=== PATIENT | male | born 1950 | race Caucasian/White ===

== ENCOUNTER 2022-11-14 11:29 | Day surgery (SDC) | payer MEDICARE, BC ==
[2022-11-14] MEDS: Ofloxacin 0.3% Ophth Soln 5 ML Bottle EYELF SCH ×2 (12:08→12:34)
[2022-11-14] MEDS: Brimonidine 0.2% Ophth Soln 5 ML Bottle EYELF SCH ×4 (12:11→13:55)
[2022-11-14] MEDS: Phenylephrine 2.5% Ophth Soln 2 ML Bot EYELF SCH ×5 (12:14→13:31)
[2022-11-14] MEDS: Tropicamide 1% Ophth Soln 15 ML Bottle EYELF SCH ×4 (12:17→12:41)
[2022-11-14] MEDS ORDERED: Ondansetron 4 MG/2 ML SDV IVPUSH PRN (12:25)
[2022-11-14] MEDS: Tetracaine HCl/PF 0.5% 4 ML Bottle EYEBOTH SCH ×5 (13:13→13:44)
[2022-11-14] MEDS: Cefuroxime 10 MG/ML SYRINGE EYELF SCH ×2 (13:16→13:54)
[2022-11-14] MEDS: Lidocaine 1% PF 2 ML SDV INJECT SCH ×2 (13:16→13:43)
[2022-11-14] MEDS: Pilocarpine 4% Ophth Soln 15 ML Bot EYELF SCH ×2 (13:17→13:55)
[2022-11-14] MEDS: Polymyxin B/Trimethoprim 10 ML Bottle EYELF SCH ×2 (13:17→13:55)
== END 2022-11-14 14:04 | disposition home or self-care (01) ==
LOC: JD.SDS 11:29
PROVIDERS: ATTEND Ophthalmology
DX: E11.36 Type 2 diabetes mellitus with diabetic cataract (principal); H25.813 Combined forms of age-related cataract, bilateral; H43.813 Vitreous degeneration, bilateral; H16.103 Unspecified superficial keratitis, bilateral; H16.223 Keratoconjunctivitis sicca, not specified as Sjogren's, bilateral; H02.831 Dermatochalasis of right upper eyelid; H02.834 Dermatochalasis of left upper eyelid; I11.0 Hypertensive heart disease with heart failure; I50.30 Unspecified diastolic (congestive) heart failure; M06.9 Rheumatoid arthritis, unspecified; Z87.891 Personal history of nicotine dependence; Z79.82 Long term (current) use of aspirin; Z79.899 Other long term (current) drug therapy
CPT/HCPCS: 66984; A9270; J0697; J3490

== ENCOUNTER 2022-12-19 12:58 | Day surgery (SDC) | payer MEDICARE, BC ==
[~2022-12-19 12:58] MED LIST: Cefuroxime 10 MG/ML SYRINGE EYERT SCH; Lidocaine 1% PF 2 ML SDV INJECT SCH; Pilocarpine 4% Ophth Soln 15 ML Bot EYERT SCH
[2022-12-19] MEDS ORDERED: Ondansetron 4 MG/2 ML SDV IVPUSH PRN (13:16)
[2022-12-19] MEDS: Ofloxacin 0.3% Ophth Soln 5 ML Bottle EYERT SCH ×3 (13:22→15:06)
[2022-12-19] MEDS: Brimonidine 0.2% Ophth Soln 5 ML Bottle EYERT SCH ×3 (13:29→15:06)
[2022-12-19] MEDS: Phenylephrine 2.5% Opth Drops 10 mL EYERT SCH ×6 (13:37→14:47)
[2022-12-19] MEDS: Tropicamide 1% Ophth Soln 15 ML Bottle EYERT SCH ×4 (13:42→14:16)
[2022-12-19] MEDS: Tetracaine HCl/PF 0.5% 4 ML Bottle EYEBOTH SCH ×5 (14:21→14:55)
== END 2022-12-19 15:16 | disposition home or self-care (01) ==
LOC: JD.SDS 12:58
PROVIDERS: ATTEND Ophthalmology
DX: E11.36 Type 2 diabetes mellitus with diabetic cataract (principal); H25.811 Combined forms of age-related cataract, right eye; M06.9 Rheumatoid arthritis, unspecified; I10 Essential (primary) hypertension; Z98.890 Other specified postprocedural states; Z79.899 Other long term (current) drug therapy; Z88.2 Allergy status to sulfonamides; Z79.82 Long term (current) use of aspirin
CPT/HCPCS: 66984; A9270; J0697; J3490; V2632

== ENCOUNTER 2024-05-17 11:49 | Emergency (ER) | payer MEDICARE, BC ==
[2024-05-17 13:59] LABS: HEMATOCRIT 14.7 % (42.0-52.0); IMMATURE GRAN ABSOLUTE AUTO 0.02 K/mm3 (0.00-0.05); IMMATURE GRAN PERCENT AUTO 1.2 % (0.0-0.4); LYMPHOCYTES ABSOLUTE AUTO 0.4 K/mm3 (1.0-4.8); LYMPHOCYTES PERCENT AUTO 24.3 % (24.0-44.0); MEAN CORPUSCULAR HEMOGLOBIN 28.7 pg (28.0-32.0); MEAN CORPUSCULAR VOLUME 89.6 fl (83.0-99.0); MEAN PLATELET VOLUME 9.4 fl (9.4-12.4); MONOCYTES PERCENT AUTO 1.2 % (0.0-8.0); NEUTROPHILS ABSOLUTE AUTO 1.2 K/mm3 (1.8-7.7); NEUTROPHILS PERCENT AUTO 73.3 % (41.0-71.0); PLATELET COUNT,PLT 29 K/mm3 (150-400); RED BLOOD CELL COUNT 1.64 M/mm3 (4.52-5.90)
[2024-05-17 14:10] LABS: WHITE BLOOD CELL COUNT,WBC 1.69 K/mm3 (3.9-11.3)
[2024-05-17 14:11] LABS: HEMOGLOBIN 4.7 gm/dl (14.0-18.0)
[2024-05-17 14:16] LABS: A/G RATIO 0.6 (1-2); ALANINE AMINOTRANSFERASE,ALT 37 U/L (16-63); ALBUMIN 2.3 g/dl (3.4-5.0); ALKALINE PHOSPHATASE 65 U/L (46-116); ANION GAP 15.3 (5-15); ASPARTATE AMNIOTRANSFERASE,AST 18 U/L (15-37); BILIRUBIN TOTAL 0.4 mg/dL (0.2-1.0); BLOOD UREA NITROGEN,BUN 15 mg/dL (7-18); BUN/CREATININE RATIO 13.6 (14-18); CALCIUM 8.9 mg/dL (8.5-10.1); CARBON DIOXIDE,CO2 23 mEq/L (21-32); CHLORIDE,CL 101 mEq/L (98-107); CREATININE 1.1 mg/dL (0.7-1.3); ESTIMATED GFR 71 mL/min (>60); GLUCOSE RANDOM 258 mg/dL (70-99); POTASSIUM,K 4.3 mEq/L (3.5-5.1); PROTEIN TOTAL,TP 6.5 g/dl (6.4-8.2); SODIUM,NA 135 mEq/L (136-145)
[2024-05-17 14:31] LABS: SLIDE REVIEW ABNORMAL SMEAR
[2024-05-17] MEDS: Sodium Chloride 0.9% 1,000 ML IV SCH (17:03)
[2024-05-17] MEDS: Sodium Chloride 0.9% 10 ML Syringe FLUSH PRN (17:04)
[2024-05-17] MEDS ORDERED: diphenhydrAMINE 50 MG/ML SDV IVPUSH ONE (17:22)
[2024-05-17 20:41] LABS: HEMATOCRIT 19.7 % (42.0-52.0)
[2024-05-17 20:43] LABS: HEMOGLOBIN 6.5 gm/dl (14.0-18.0)
== END 2024-05-18 01:04 | disposition home or self-care (01) ==
LOC: JD.ED 11:49
DX: D64.9 Anemia, unspecified (principal); D61.818 Other pancytopenia; Z88.2 Allergy status to sulfonamides; Z88.8 Allergy status to other drugs, medicaments and biological substances; Z79.82 Long term (current) use of aspirin; Z79.899 Other long term (current) drug therapy
CPT/HCPCS: 36415; 36430; 80053; 85014; 85018; 85025; 86850; 86900; 86901; 86922; 96360; 96361; 99284; J3490; J7030; P9016; 99285